=== PATIENT | female | born 1995 | race Caucasian/White ===

== ENCOUNTER 2016-07-20 21:20 | Emergency (ER) | payer OTHER ==
[~2016-07-20] VITALS: Ht 162.6 cm; Wt 81.2 kg
[~2016-07-20 21:20] MED LIST: ATARAX,VISTARIL50 MG PO; BACTRIM,SEPT1 TABLET PO; INDOCIN50 MG PO; KEFLEX500 MG PO; MUCUS-ER MAX1200 MG PO; NAPROXEN500 MG PO; PROVENTIL17 GM IH
[2016-07-20 22:38] LABS: ADD MIUA? YES; BILIRUBIN NEGATIVE; BLOOD NEGATIVE; COLOR YELLOW ((YELLOW)); GLUCOSE (STRIP) NEGATIVE; KETONES NEGATIVE; LEUKOCYTES SMALL; NITRITE NEGATIVE; PROTEIN (STRIP) NEGATIVE; UROBILINOGEN 0.2 MG/DL (0.2-1.0)
[2016-07-20 22:44] LABS: BACTERIA RARE /HPF; EPITHELIAL CELLS RARE /HPF; MUCUS TRACE /LPF; RED BLOOD CELLS 0-5 /HPF (0-5); UCUL ADDED? NO; WHITE BLOOD CELLS 0-5 /HPF (0-5)
[2016-07-20 23:19] LABS: HEMATOCRIT 34.9 % (36.0-46.0); MCH 29.6 PG (29.0-34.0); MCHC 33.8 G/DL (30.0-36.0); MCV 87.7 FL (83-99); PLATELET COUNT 221 K/uL (156-360); RBC DIS.WIDTH-CV 15.3 % (11.8-14.6); RED BLOOD COUNT 3.98 M/uL (3.80-5.20); WHITE BLOOD COUNT 12.4 K/uL (4.1-10.2)
[2016-07-20 23:34] LABS: CHLORIDE 108 mEq/L (99-109); POTASSIUM 3.6 mEq/L (3.7-5.4); SODIUM 139 mEq/L (136-147)
[2016-07-20 23:37] LABS: GLUCOSE 98 mg/dL (70-99)
[2016-07-20 23:38] LABS: ANION GAP 7 MEQ/L (2-14)
[2016-07-20 23:39] LABS: TOTAL BILIRUBIN 0.2 mg/dL (0.0-1.0)
[2016-07-20 23:40] LABS: ALKALINE PHOSPHATASE 58 IU/L (3-129); GFR ESTIMATE (CALCULATED) > 59 mL/min/
[2016-07-20 23:41] LABS: UREA NITROGEN (BUN) 7 mg/dL (9-23)
[2016-07-21 00:13] VITALS: BP 118/60
== END 2016-07-21 00:15 | disposition home or self-care (01) ==
LOC: EME 21:20
PROVIDERS: Physician Assistant
DX: O99.89 Other specified diseases and conditions complicating pregnancy, childbirth and the puerperium (principal); M79.604 Pain in right leg; Z3A.00 Weeks of gestation of pregnancy not specified
CPT/HCPCS: 80053; 81003; 85027; 93971; 99281; 99284

== ENCOUNTER 2016-11-01 20:21 | Outpatient (CLI) | payer OTHER ==
[~2016-11-01] VITALS: Ht 162.6 cm; Wt 89.8 kg
[2016-11-01 20:37] VITALS: BP 115/74
[2016-11-01] MEDS ORDERED: PRENATAL TABLE1 EAC3 PO (20:57)
[2016-11-01 21:41] LABS: ADD MIUA? YES; BILIRUBIN NEGATIVE; BLOOD NEGATIVE; COLOR YELLOW ((YELLOW)); GLUCOSE (STRIP) NEGATIVE; KETONES NEGATIVE; LEUKOCYTES TRACE; NITRITE NEGATIVE; PROTEIN (STRIP) NEGATIVE; SPECIFIC GRAVITY 1.011 (1.000-1.030); UROBILINOGEN 0.2 MG/DL (0.2-1.0)
[2016-11-01 21:47] LABS: BACTERIA RARE /HPF; EPITHELIAL CELLS RARE /HPF; MUCUS TRACE /LPF; RED BLOOD CELLS NONE SEEN /HPF (0-5); WHITE BLOOD CELLS 0-5 /HPF (0-5)
[2016-11-01 21:58] LABS: AMPHETAMINE NEGATIVE (500 ng/mL); BARBITURATES NEGATIVE (200 ng/mL); BENZODIAZEPINES NEGATIVE (150 ng/mL); COCAINE NEGATIVE (150 ng/mL); INTERNAL CONTROLS VALID? YES; METHADONE NEGATIVE (200 ng/mL); METHAMPHETAMINE NEGATIVE (500 ng/mL); OPIATES (MORPHINE) NEGATIVE (100 ng/mL); OXYCODONE NEGATIVE (100 ng/mL); PHENCYCLIDINE NEGATIVE (25 ng/mL); PROPOXYPHENE NEGATIVE (300 ng/mL); THC CANNABINOIDS NEGATIVE (50 ng/mL); TRICYCLIC ANTIDEPRESSANTS NEGATIVE (300 ng/mL)
[2016-11-02 03:49] LABS: CANDIDA DNA PROBE NEGATIVE; GARDNERELLA DNA PROBE NEGATIVE; INTERNAL CONTROL VALID? YES
== END 2016-11-01 22:25 | disposition home or self-care (01) ==
LOC: LDRP-OP → 2WEST 20:22 → LDRP-OP 01-10 14:44
PROVIDERS: Advanced Practice Midwife
DX: O26.893 Other specified pregnancy related conditions, third trimester (principal); Z3A.34 34 weeks gestation of pregnancy
CPT/HCPCS: 59025; 81003; 87086; 87480; 87510; 87660; G0378

== ENCOUNTER 2016-12-17 19:49 | Emergency (ER) | payer OTHER ==
[~2016-12-17] VITALS: Ht 162.6 cm; Wt 88.3 kg
[~2016-12-17 19:49] MED LIST changes: +PRENATAL TABLE1 EAC3 PO
[2016-12-17 20:53] LABS: HEMATOCRIT 31.9 % (36.0-46.0); MCHC 32.6 G/DL (30.0-36.0); MEAN PLAT.VOLUME 10.9 uM^3 (9.5-12.4); PLATELET COUNT 245 K/uL (156-360); RBC DIS.WIDTH-CV 14.1 % (11.8-14.6); RBC DIS.WIDTH-SD 43.4 % (39-53); RED BLOOD COUNT 3.71 M/uL (3.80-5.20); WHITE BLOOD COUNT 12.1 K/uL (4.1-10.2)
[2016-12-17 21:01] LABS: CHLORIDE 109 mEq/L (99-109); POTASSIUM 3.8 mEq/L (3.7-5.4); SODIUM 139 mEq/L (136-147)
[2016-12-17 21:03] LABS: GLUCOSE 94 mg/dL (70-99)
[2016-12-17 21:04] LABS: ANION GAP 9 MEQ/L (2-14)
[2016-12-17 21:06] LABS: GFR ESTIMATE (CALCULATED) > 59 mL/min/
[2016-12-17 21:07] LABS: UREA NITROGEN (BUN) 11 mg/dL (9-23)
[2016-12-17 22:34] LABS: ADD MIUA? YES; BILIRUBIN NEGATIVE; BLOOD LARGE; COLOR YELLOW ((YELLOW)); GLUCOSE (STRIP) NEGATIVE; KETONES NEGATIVE; LEUKOCYTES LARGE; NITRITE NEGATIVE; PROTEIN (STRIP) 30; SPECIFIC GRAVITY 1.021 (1.000-1.030)
[2016-12-17 22:37] LABS: BACTERIA RARE /HPF; EPITHELIAL CELLS RARE /HPF; MUCUS TRACE /LPF; RED BLOOD CELLS 20-30 /HPF (0-5); WHITE BLOOD CELLS TNTC /HPF (0-5)
[2016-12-17] MEDS ORDERED: KEFLEX500 MG PO (22:58)
[2016-12-17 23:06] VITALS: BP 109/73
== END 2016-12-17 23:08 | disposition home or self-care (01) ==
LOC: EME 19:49
PROVIDERS: Physician Assistant
DX: N30.90 Cystitis, unspecified without hematuria (principal); J45.909 Unspecified asthma, uncomplicated
CPT/HCPCS: 80048; 81003; 85027; 87086; 99281; 99284; J7030